=== PATIENT | female | born 1965 | race African-American/Black ===

== ENCOUNTER → 2016-05-30 | Outpatient (CLI) | payer MEDICARE ==
[~2016-05-30] MED LIST: ALPRAZOLAM PO; ALPRAZOLAM0.5 MG PO; AMBIEN10 MG PO; AMOXIL500 MG PO; ASPIRIN EC81 M1 PO; CHEMOTHERAPY; COUMADIN5 MG PO; DECADRON PO; DICYCLOMINE HCL20 MG; FLEXERIL PO; FULVESTRANT IM; GABAPENTIN300 MG PO; HERCEPTIN; KCL PO; LANOXIN PO; LASIX PO; METOPROLOL TAR25 MG PO; PHENERGAN25 MG PO; TAMOXIFEN10 MG PO; ULTRAM PO; VICODIN 5/500 T1 TAB PO; ZOCOR PO
--- NOTE | ~2016-05-30 | MY7 ---
[facility] A Service of [facility] RADIOLOGY TEXT RESULTS PATIENT: IMELDA PANDA LOCATION: [facility] : 63 UNIT #: [id number] AGE: [address]: Aleja Sands MD SEX: F ORDER DR: [id number] [facility] [address] [place], [place] [address] [id number] O MR#: [id number] Acc #: [id number] NAME: IMELDA PANDA : 1965 SEX: F STUDY DATE/TIME: 05/30/2016 8:34 UNIT: [facility] ROOM: STUDY DESCRIPTION: MY Mammogram Dx Dig Lt Attending Physician: Aleja Sands M.D. Referring Physician: Aleja Sands M.D. Ordering Physician: Aleja Sands M.D. Primary Care Physician: Aleja Sands M.D. MEDICAL IMAGING REPORT This report is preliminary unless electronic signature is present EXAM Unilateral digital diagnostic mammogram on the left with CAD, 05/30/2016. INDICATION 51-year-old female with a history of right-sided breast cancer status post mastectomy in 2006. Family history positive in the patient's mother at age 67. History of liver metastases. Currently on oral chemotherapy. TECHNIQUE CC, MLO, and true lateral views of the left breast were obtained and reviewed with an FDA-approved CAD device. COMPARISONS 11/13/2014, 11/09/2013, 11/08/2012, 10/28/2010 FINDINGS Breast parenchyma is composed of scattered fibroglandular densities. The pattern is unchanged. There is no new dominant nodule, mass, or suspicious cluster of microcalcifications. The patient could not remain here in the department for a discussion of results prior to her departure. Results were personally called to the office of the ordering physician Dr. Hilary Sands at the time of this dictation and discussed with Dr. Sands' front office medical assistant, Charo, in the even the patent calls the office of Dr. Sands for the results. IMPRESSION Benign unilateral left diagnostic mammogram. 1-year followup recommended. Patients over the age of 40 are entered into a reminder system with target due date for the next mammogram. A result letter will also be sent to the patient. BIRADS: 2 Benign finding. [facility] A Service of [facility] RADIOLOGY TEXT RESULTS PATIENT: IMELDA PANDA LOCATION: [facility] : 63 UNIT #: [id number] AGE: [address]: Aleja Sands MD SEX: F ORDER DR: Dictated by... Wagner Inman M.D. THIS IS AN ELECTRONICALLY VERIFIED REPORT Wagner Inman M.D. at 05/31/2016 11:16 AM DEMAR/nithya TD: 05/30/2016 12:04 JOB #: [id number] MEDICAL IMAGING REPORT COPY
== END | disposition home or self-care (01) ==
LOC: CMAM 08:16
DX: C50.911 Malignant neoplasm of unspecified site of right female breast (principal)
CPT/HCPCS: G0206

== ENCOUNTER → 2016-06-05 | Outpatient (CLI) | payer MEDICARE ==
--- NOTE | ~2016-06-05 | CT5 ---
[facility] A Service of [facility] & [facility] RADIOLOGY TEXT RESULTS PATIENT: IMELDA PANDA [facility] : 63 UNIT #: [id number] AGE: [address]: Josh Beavers MD SEX: F ORDER DR: [id number] [facility]. [place], [place] [address] [id number] O MR#: [id number] Acc #: [id number] NAME: IMELDA PANDA : 1965 SEX: F STUDY DATE/TIME: 06/05/2016 13:52 UNIT: [facility] ROOM: STUDY DESCRIPTION: CT Abdomen W Cont Attending Physician: Josh Beavers M.D. Referring Physician: Josh Beavers M.D. Ordering Physician: Josh Beavers M.D. Primary Care Physician: Aleja Sands M.D. MEDICAL IMAGING REPORT This report is preliminary unless electronic signature is present EXAM CT abdomen. DATE OF EXAM 06/05/[address] abdomen 04/14/2016 and 11/16/2015. CLINICAL HISTORY Malignant neoplasm of the female breast. Liver metastases. Restaging. TECHNIQUE CT of the abdomen with p.o. and IV contrast (100 mL Isovue-370 IV contrast). Coronal and sagittal reconstructions were obtained. NOTE: This CT exam was performed with one or more of the following radiation dose reduction techniques: automatic exposure control, adjustment of mA and/or kV according to patient size, and iterative reconstruction. COMPARISON CT abdomen dated 04/14/2016. FINDINGS The overall size of the liver has decreased. There is diffuse hepatic metastatic disease. The index lesions measured on the prior report have decreased in size. An index lesion in the medial segment left hepatic lobe measures 2.1 cm compared to 2.6 cm previously. The lesion in the lateral segment, left hepatic lobe measures 3 cm compared to 3.3 cm previously. Diffusely infiltrative conglomeration of tumor in the posterior right hepatic lobe is estimated to measure 8.8 cm compared to 9.6 cm previously. No new or enlarging lesions are identified. The gallbladder, pancreas, spleen, and adrenal glands are within normal STS. [facility] A Service of [facility] & [facility] RADIOLOGY TEXT RESULTS PATIENT: IMELDA PANDA [id number] [birth year] UNIT #: [id number] AGE: [address]: Josh Beavers MD SEX: F ORDER DR: limits. Kidneys are within normal limits. The bowel is not dilated. No enlarged retroperitoneal or mesenteric lymph nodes. No new osseous abnormalities. Large extradural soft tissue associated at the L4-5 disc space is probably an extruded disc. This has decreased in prominence from the prior study. IMPRESSION 1. Partial response to therapy. 2. Diffuse hepatic metastatic disease in the liver has decreased. Index nodules, as well as the overall volume of the liver has diminished in the interval. Dictated by... Manolo Yu M.D. THIS IS AN ELECTRONICALLY VERIFIED REPORT Manolo Yu M.D. at 06/06/2016 11:13 AM JOON/bruno TD: 06/05/2016 17:46 JOB #: [id number] MEDICAL IMAGING REPORT COPY
[2016-06-05 13:20] LABS: POC - CREATININE 0.98 mg/dL (0.44-1.03); POC - GFR >60.0 mL/min (>60)
== END | disposition home or self-care (01) ==
LOC: CCAT 12:43
PROVIDERS: Internal Medicine Medical Oncology
DX: C50.819 Malignant neoplasm of overlapping sites of unspecified female breast (principal); C78.7 Secondary malignant neoplasm of liver and intrahepatic bile duct
CPT/HCPCS: 74160; 82565; Q9967

== ENCOUNTER → 2016-09-08 | Outpatient (CLI) | payer MEDICARE ==
--- NOTE | ~2016-09-08 | CT5 ---
[facility] A Service of [facility] RADIOLOGY TEXT RESULTS PATIENT: IMELDA PANDA [facility] 63 UNIT #: [id number] AGE: [address]: Josh Beavers MD SEX: F ORDER DR: [id number] [place], [place] [address] [id number] O MR#: [id number] Acc #: [id number] NAME: IMELDA PANDA : 1965 SEX: F STUDY DATE/TIME: 09/08/2016 7:57 UNIT: [facility] ROOM: STUDY DESCRIPTION: CT Abdomen W Cont Attending Physician: Josh Beavers M.D. Referring Physician: Josh Beavers M.D. Ordering Physician: Josh Beavers M.D. Primary Care Physician: Aleja Sands M.D. MEDICAL IMAGING REPORT This report is preliminary unless electronic signature is present EXAM CT abdomen with contrast INDICATIONS Restaging breast cancer. Observation of metastatic disease. PROCEDURE Contrast-enhanced CT abdomen. This CT exam was performed with one or more of the following radiation dose reduction techniques: automatic exposure control, adjustment of mA and/or kV according to patient size, and iterative reconstruction. COMPARISON 06/05/2016 FINDINGS Redemonstration of diffuse hepatic metastatic disease. Index conglomerate metastasis in the posterior right lobe measures 7.7 x 6.3 cm ,previously measured at 8.7 x 7.4 cm. The second index lesion in the far lateral segment of the left lobe measures up to 2.3 cm, previously 3 cm. The spleen, kidneys, adrenal glands, pancreas are unremarkable. Unremarkable gallbladder. The bowel loops are nondilated. No abdominal adenopathy. No aggressive-appearing bone lesion. IMPRESSION 1. Extensive hepatic metastatic disease similar in distribution, but overall slightly decreased in size compared with 06/05/2016. 2. No evidence for metastatic disease elsewhere in the abdomen. Dictated by... Andrei Park M.D. [facility] A Service of [facility] RADIOLOGY TEXT RESULTS PATIENT: IMELDA PANDA LOCATION: [facility] : 63 UNIT #: [id number] AGE: [address]: Josh Beavers MD SEX: F ORDER DR: THIS IS AN ELECTRONICALLY VERIFIED REPORT Andrei Park M.D. at 09/11/2016 1:55 PM Micah TD: 09/08/2016 11:38 JOB #: [id number] MEDICAL IMAGING REPORT Page 1 of 1 COPY
[2016-09-08 09:50] LABS: POC - CREATININE 0.88 mg/dL (0.44-1.03); POC - GFR >60.0 mL/min (>60)
== END | disposition home or self-care (01) ==
LOC: CCAT 09-04 10:00
PROVIDERS: Internal Medicine Medical Oncology
DX: C50.919 Malignant neoplasm of unspecified site of unspecified female breast (principal); C78.7 Secondary malignant neoplasm of liver and intrahepatic bile duct
CPT/HCPCS: 74160; 82565; Q9967